=== PATIENT | female | born 1950 | race Caucasian/White ===

== ENCOUNTER → 2024-07-29 15:39 | Outpatient (REF) | payer MEDICARE, SELFPAY | LOC: RAD 15:39 | PROVIDERS: ATTENDING PHYSICIAN Orthopaedic Surgery Hand Surgery; FAMILY PHYSICIAN Family Medicine | DX: S52.122A Displaced fracture of head of left radius, initial encounter for closed fracture (principal); M25.522 Pain in left elbow | CPT/HCPCS: 73200 ==